=== PATIENT | female | born 2000 | race African-American/Black ===

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

== ENCOUNTER 2019-07-30 23:05 | Emergency (ER) | payer SELFPAY | END 2019-07-31 01:35 | disposition home or self-care (01) | LOC: ERS 23:05 | DX: L02.415 Cutaneous abscess of right lower limb (principal); F41.9 Anxiety disorder, unspecified; F32.9 Major depressive disorder, single episode, unspecified | CPT/HCPCS: 10060 ==

== ENCOUNTER 2020-11-14 21:01 | Emergency (ER) | payer OTHER | END 2020-11-14 23:51 | disposition left against medical advice (07) | LOC: ERS 21:01 | DX: Z53.21 Procedure and treatment not carried out due to patient leaving prior to being seen by health care provider (principal) | CPT/HCPCS: 93005 ==

== ENCOUNTER 2023-04-29 11:30 | Emergency (ER) | payer SELFPAY | END 2023-04-29 13:17 | disposition home or self-care (01) | LOC: ERS 11:30 | DX: J06.9 Acute upper respiratory infection, unspecified (principal); H65.91 Unspecified nonsuppurative otitis media, right ear | CPT/HCPCS: 71045 ==